=== PATIENT | female | born 1995 | race Caucasian/White ===

== ENCOUNTER → 2021-01-05 | Outpatient (CLI) | payer OTHER | LOC: LAB SHORT 09:30 → PLD 09:30 | DX: N39.0 Urinary tract infection, site not specified (principal) | CPT/HCPCS: 87077; 87086; 87186 ==

== ENCOUNTER → 2021-05-12 | Outpatient (CLI) | payer OTHER | END | disposition home or self-care (01) | LOC: LAB SHORT 13:45 → LAB 13:45 | DX: J02.9 Acute pharyngitis, unspecified (principal) | CPT/HCPCS: 87081 ==

== ENCOUNTER → 2024-07-01 | Outpatient (CLI) | payer OTHER ==
[~2024-07-01] MED LIST: ONDA4ODT MM
[2024-07-01 14:59] LABS: Candida glabrata-krusei, PCR NOT DETECTED (NOT DETECT)
[2024-07-01 15:26] LABS: Bacterial Vaginosis PCR Positive (NEGATIVE); Candida Group, PCR DETECTED (NOT DETECT)
[2024-07-03 09:59] LABS: APTIMA MEDIA TYPE Unisex Swab; C. TRACHOMATIS BY TMA Negative (Negative); N. GONORRHOEAE BY TMA Negative (Negative); SPECIMEN SOURCE Cervical
[2024-07-03 10:01] LABS: APTIMA MEDIA TYPE Unisex Swab; C. TRACHOMATIS BY TMA Negative (Negative); N. GONORRHOEAE BY TMA Negative (Negative); SPECIMEN SOURCE Rectal
== END | disposition home or self-care (01) ==
LOC: LAB SHORT 11:09 → LAB 11:09
PROVIDERS: Family Medicine
DX: Z11.3 Encounter for screening for infections with a predominantly sexual mode of transmission (principal); N89.8 Other specified noninflammatory disorders of vagina
CPT/HCPCS: 87481; 87491; 87591; 87661; 87801

== ENCOUNTER 2025-05-26 09:03 | Emergency (ER) | payer OTHER ==
[~2025-05-26] VITALS: Ht 165.1 cm; Wt 83.9 kg
[2025-05-26 09:51] VITALS: BP 114/70
[2025-05-26] MEDS ORDERED: CYCL10 PO (11:46)
== END 2025-05-26 11:57 | disposition home or self-care (01) ==
LOC: ER 09:03
DX: S30.1XXA Contusion of abdominal wall, initial encounter (principal); M54.2 Cervicalgia; M54.9 Dorsalgia, unspecified; V43.52XA Car driver injured in collision with other type car in traffic accident, initial encounter; Z59.89 Other problems related to housing and economic circumstances; Z79.899 Other long term (current) drug therapy
CPT/HCPCS: 74177; 81000; 99284-25; Q9967